=== PATIENT | female | born 1985 | race Caucasian/White ===

== ENCOUNTER 2019-09-30 15:19 | Emergency (ER) | payer MEDICAID, SELFPAY ==
[2019-09-30 15:45] VITALS: BP 127/88; PULSE 104; RESP 18; TEMP 36.8; O2SAT 98; BMI 17.2
[2019-09-30 17:16] LABS: Basophils % 0.2 %; Eosinophils % 0.2 %; Hematocrit 38.2 % (37.0-47.0); Hemoglobin 12.1 g/dL (11.5-15.3); Lymphocytes # 1.4 10^3/uL (0.8-4.8); Lymphocytes % 12.4 %; Mean Corpuscular HGB Conc 31.7 g/dL (30.0-36.0); Mean Corpuscular Hemoglobin 27.4 pg (28.0-34.0); Mean Corpuscular Volume 86.4 fL (81-99); Mean Platelet Volume 9.1 fL (7.4-10.4); Monocytes # 0.9 10^3/uL (0.2-0.9); Monocytes % 7.7 %; Neutrophils # 9.1 10^3/uL (1.8-7.7); Neutrophils % 79.2 %; Nucleated Red Blood Cells % 0 %; Platelet Count 455 10^3/cmm (130-400); Red Blood Count 4.42 10^6/uL (4.1-5.3); Red Cell Distribution Width 15.7 % (12.1-15.1); White Blood Count 11.5 10^3/uL (4.0-10.0)
[2019-09-30 17:22] LABS: Alanine Aminotransferase 20 U/L (0-33); Albumin Level 4.7 g/dL (3.5-5.2); Alkaline Phosphatase 82 IU/L (35-105); Anion Gap 18.5 (5-19); Aspartate Amino Transferase 19 U/L (0-32); Blood Urea Nitrogen 13 mg/dL (6-20); Carbon Dioxide 24 mmol/L (22-29); Chloride 95 mmol/L (98-107); Globulin 3.6 g/dL (1.3-4.6); Glomerular Filtration Rate 113.8 mL/min (90-130); Glucose 102 mg/dL (74-109); Lipase 57 U/L (13-60); Potassium 4.5 mmol/L (3.5-5.1); Sodium 133 mmol/L (136-145); Total Bilirubin 0.5 mg/dL (0.15-1.2); Total Protein 8.3 g/dL (6.6-8.7)
[2019-09-30 17:32] LABS: HCG, Serum Qual Negative (Negative)
[2019-09-30 20:39] VITALS: BP 115/84; PULSE 94; RESP 18; O2SAT 99
--- NOTE | 2019-09-30 20:53 | ED_ITS ---
HPI - Abdominal Pain General: Chief Complaint: Abdominal Pain Stated Complaint: abd pain Time Seen by Provider: 09/30/19 20:47 History of Present Illness: HPI narrative: Patient is a 33-year-old female comes to the ED with abdominal pain. She's had this abdominal pain since August 11 and has been in the ED several times in the last month. She has been referred to a GI specialist in [place] whom she actually saw today to get a biopsy performed of a mass on pancreas. Pt had biopsy done on her pancreas today in [place]. She says that she Woke up after the procedure and she was in a lot of pain. The outpatient facility [facility] with a prescription for an antibiotic but no pain meds. She comes in here today with abdominal pain for 9 out of 10. The pain is the same as her past abdominal pain. Denies any fevers, vomiting, bowel or bladder problems, shortness of breath and chest pain. She does have some mild nausea. Related Data: Date of Last Menstrual Period: 09/18/19 Review of Systems General: Reports: 10 or more systems reviewed and unremarkable except in HPI and below PFSH ED PFSH: Statuses (acute, chronic, etc) shown below reflect problem list status as previously entered and may not be historically accurate Social History Smoking and tobacco status: current every day smoker Female Reproductive History: Date of last menstrual period: 09/18/19 Physical Exam Const: COMMON NORMALS: oriented x3 HENMT: COMMON NORMALS: normocephalic HEAD & SCALP: normocephalic MOUTH: oral and palatal mucosa normal THROAT: posterior oropharynx normal and uvula midline Neck/C-Spine: COMMON NORMALS: supple GENERAL: Yes normal visual inspection Resp: COMMON NORMALS: normal respiratory effort, no retractions, no use of accessory muscles and clear to auscultation bilaterally AUSCULTATION: clear to auscultation bilaterally Cardio: COMMON NORMALS: regular rate, regular rhythm, S1 normal heart sound, S2 normal heart sound, no gallops, no clicks, no murmurs and peripheral pulses 2+ throughout RATE: regular rate RHYTHM: regular rhythm HEART SOUNDS: S1 normal and S2 normal PERIPHERAL PULSES: pulses 2+ throughout GI: COMMON NORMALS: normal to inspection, nondistended, normoactive bowel sounds, soft to palpation and no masses PALPATION: Yes soft and Yes tender (periumbilical) Details: other : COMMON NORMALS: Yes no CVA tenderness BLADDER/KIDNEY EXAM: Yes no CVA tenderness Back/Pelvis: COMMON NORMALS: no CVA tenderness Neuro: COMMON NORMALS: oriented x3 Course Vital Signs: Vital signs: Vital Signs Temperature 98.3 F 09/30/19 15:45 Pulse Rate 95 10/01/19 00:27 Respiratory Rate 20 H 10/01/19 00:27 Blood Pressure 115/86 10/01/19 00:27 Pulse Oximetry 96 10/01/19 00:27 MDM - Abdominal Pain Lab Data: Attestation: I reviewed the patient's lab results. Labs: Lab Results 09/30/19 09/30/19 09/30/19 Range/Units 16:30 16:52 16:52 WBC 11.5 H (4.0-10.0) 10^3/ uL RBC 4.42 (4.1-5.3) 10^6/u L Hgb 12.1 (11.5-15.3) g/dL Hct 38.2 (37.0-47.0) % MCV 86.4 (81-99) fL MCH 27.4 L (28.0-34.0) pg MCHC 31.7 (30.0-36.0) g/dL RDW 15.7 H (12.1-15.1) % Plt Count 455 H (130-400) 10^3/c mm MPV 9.1 (7.4-10.4) fL Neut % (Auto) 79.2 % Lymph % (Auto) 12.4 % Todd % (Auto) 7.7 % Eos % (Auto) 0.2 % Baso % (Auto) 0.2 % Neut # (Auto) 9.1 H (1.8-7.7) 10^3/u L Lymph # (Auto) 1.4 (0.8-4.8) 10^3/u L Todd # (Auto) 0.9 (0.2-0.9) 10^3/u L Eos # (Auto) 0.0 (0.0-0.8) 10^3/u L Baso # (Auto) 0.0 (0.0-0.1) 10^3/u L Nucleated RBC % (a uto) 0 % Nucleated RBCs # 0.0 /100WBC Sodium 133 L (136-145) mmol/L Potassium 4.5 (3.5-5.1) mmol/L Chloride 95 L (98-107) mmol/L Carbon Dioxide 24 (22-29) mmol/L Anion Gap 18.5 (5-19) BUN 13 (6-20) mg/dL Creatinine 0.6 (0.5-0.9) mg/dL GFR Calculation 113.8 (90-130) mL/min Glucose 102 (74-109) mg/dL Calcium 11.0 H (8.6-10.0) mg/Dl Total Bilirubin 0.5 (0.15-1.2) mg/dL AST 19 (0-32) U/L ALT 20 (0-33) U/L Alkaline Phosphata se 82 (35-105) IU/L Total Protein 8.3 (6.6-8.7) g/dL Albumin 4.7 (3.5-5.2) g/dL Globulin 3.6 (1.3-4.6) g/dL Lipase 57 (13-60) U/L HCG, Qual (Negative) Urine Color Yellow (Yellow) Urine Appearance Clear (CLEAR) Urine pH 8 H (5-7) Ur Specific Gravit y 1.010 (1.005-1.030) Urine Protein Neg (Negative) Urine Glucose (UA) Norm (Normal) Urine Ketones Negative (Negative) Urine Occult Blood Neg (Negative) Urine Nitrate Negative (Negative) Urine Bilirubin Neg (NEGATIVE) Prot Sulfosalicyli c Acd Negative Urine Urobilinogen Norm (Negative) mg/dL Ur Leukocyte Hattie ase Negative (Negative) 09/30/19 Range/Units 16:52 WBC (4.0-10.0) 10^3/ uL RBC (4.1-5.3) 10^6/u L Hgb (11.5-15.3) g/dL Hct (37.0-47.0) % MCV (81-99) fL MCH (28.0-34.0) pg MCHC (30.0-36.0) g/dL RDW (12.1-15.1) % Plt Count (130-400) 10^3/c mm MPV (7.4-10.4) fL Neut % (Auto) % Lymph % (Auto) % Todd % (Auto) % Eos % (Auto) % Baso % (Auto) % Neut # (Auto) (1.8-7.7) 10^3/u L Lymph # (Auto) (0.8-4.8) 10^3/u L Todd # (Auto) (0.2-0.9) 10^3/u L Eos # (Auto) (0.0-0.8) 10^3/u L Baso # (Auto) (0.0-0.1) 10^3/u L Nucleated RBC % (a uto) % Nucleated RBCs # /100WBC Sodium (136-145) mmol/L Potassium (3.5-5.1) mmol/L Chloride (98-107) mmol/L Carbon Dioxide (22-29) mmol/L Anion Gap (5-19) BUN (6-20) mg/dL Creatinine (0.5-0.9) mg/dL GFR Calculation (90-130) mL/min Glucose (74-109) mg/dL Calcium (8.6-10.0) mg/Dl Total Bilirubin (0.15-1.2) mg/dL AST (0-32) U/L ALT (0-33) U/L Alkaline Phosphata se (35-105) IU/L Total Protein (6.6-8.7) g/dL Albumin (3.5-5.2) g/dL Globulin (1.3-4.6) g/dL Lipase (13-60) U/L HCG, Qual Negative (Negative) Urine Color (Yellow) Urine Appearance (CLEAR) Urine pH (5-7) Ur Specific Gravit y (1.005-1.030) Urine Protein (Negative) Urine Glucose (UA) (Normal) Urine Ketones (Negative) Urine Occult Blood (Negative) Urine Nitrate (Negative) Urine Bilirubin (NEGATIVE) Prot Sulfosalicyli c Acd Urine Urobilinogen (Negative) mg/dL Ur Leukocyte Hattie ase (Negative) Discharge Plan Discharge Patient Disposition: Home, Self-Care Clinical Impression: Abdominal pain Qualifiers: Abdominal location: generalized Qualified Code(s): R10.84 - Generalized abdominal pain Condition: Stable Discharge Orders: Discharge Order (Routine); Ordered 10/01/19 Ordered By: Sanju Giron Referrals: Angelica Restrepo FNP [Primary Care Provider] - Discharge Diet: Advance as tolerated Discharge Activity: Increase activity as tolerated Patient Instructions: Abdominal Pain (ED) Activity Restrictions/Additional Instructions: Follow-up with your primary care doctor in 5-7 days for reevaluation of abdominal pain. Also follow-up with your GI specialist in [place] to go over biopsy results. Take tramadol as prescribed for pain. Discharge Date/Time: 10/01/19 00:28 Coding Level of Care Code ED [employer] Observer for Diaz Holt
[2019-09-30 22:00] VITALS: BP 137/88
[2019-09-30 22:05] VITALS: RESP 18
[2019-09-30] MEDS: ondansetron 2 mg/ML SDV 2 mL 4 MG IM (22:05)
[2019-09-30] MEDS: morphine 4 mg/mL SDV 1 mL IM (22:05)
[2019-09-30 22:14] LABS: Add Urine Microscopic? NO
[2019-09-30 23:00] VITALS: BP 116/81; PULSE 91; O2SAT 93
[2019-09-30 23:02] LABS: Bilirubin Urine Neg (NEGATIVE); Blood Urine Neg (Negative); Glucose Urine UA Norm (Normal); Ketones Urine Negative (Negative); Leukocyte Esterase Urine Negative (Negative); Nitrate Urine Negative (Negative); Protein Urine Neg (Negative); Sulfosalicylic Acid Urine Negative; Urine Appearance Clear (CLEAR); Urine Color Yellow (Yellow); Urobilinogen Urine Norm (Negative); pH Urine 8 (5-7)
[2019-10-01] VITALS: BP 124/83; PULSE 85; O2SAT 93
[2019-10-01 00:25] VITALS: RESP 20
[2019-10-01] MEDS: oxyCODONE-APAP 5-325 mg Tablet 1 TAB PO (00:25)
[2019-10-01 00:27] VITALS: BP 115/86; PULSE 95; RESP 20; O2SAT 96
== END 2019-10-01 00:28 | disposition home or self-care (01) ==
PROVIDERS: Physician Assistant; Emergency Provider Physician Assistant; Family Provider Nurse Practitioner Family; PCP Nurse Practitioner Family
DX: R10.84 Generalized abdominal pain (principal); F17.210 Nicotine dependence, cigarettes, uncomplicated
CPT/HCPCS: 80053; 81003; 83690; 84703; 85025; 96372; 99282; A9270; J2270; J2405

== ENCOUNTER 2019-11-02 21:45 | Observation (INO) | payer MEDICAID, SELFPAY ==
[2019-11-02 22:00] VITALS: BP 139/92; PULSE 107; RESP 19; TEMP 36.5; O2SAT 100; BMI 18.6
--- NOTE | 2019-11-02 23:22 | ED_ITS ---
Entered by Irene Ingram, acting as scribe for Prabhu Gee DO Nov 02, 2019 21:45 HPI - Abdominal Pain General: Chief Complaint: Abdominal Pain Stated Complaint: abd pain Time Seen by Provider: 11/02/19 23:22 Source: patient Mode of arrival: ambulatory Limitations: no limitations History of Present Illness: HPI narrative: 33 yo m came to the er pov for abd pain. Onset was tonight. Pt states that she has nausea but no vomiting. Pt states that she has had a hx of pancreatitis. MD elicited complaint: abdominal pain Pertinent past history: other (pancreatitis) Onset (ago): day(s) (today) Radiation: LUQ and RUQ Migration to: no migration Exacerbating factors: nothing Relieving factors: nothing Associated Symptoms: Reports fever(s) and nausea; Denies dysuria Related Data: Date of Last Menstrual Period: 10/10/19 Review of Systems General: Reports: other (negative unless marked ) Const: Reports: fever Eyes: Denies: change in vision or blurry vision ENMT: Denies: nasal discharge or nasal congestion Card: Denies: chest pain, palpitations or irregular heart rhythm Resp: Denies: shortness of breath, productive cough or wheezing GI: Reports: abdominal pain and nausea : Denies: difficulty urinating or painful urination Neuro: Denies: headache or confusion PFSH ED PFSH: Statuses (acute, chronic, etc) shown below reflect problem list status as previously entered and may not be historically accurate Medical History (Updated 11/03/19 @ 02:01 by Mohan Godoy MD) Acute on chronic pancreatitis (Acute) Anemia (Acute) Pancreatic pseudocyst (Acute) Surgical History (Updated 11/03/19 @ 02:03 by Mohan Godoy MD) History of (Acute) Hx of appendectomy (Acute) Family History (Updated 11/03/19 @ 02:03 by Mohan Godoy MD) Other CAD (coronary artery disease) Diabetes Hypertension Social History (Updated 11/03/19 @ 02:03 by Mohan Godoy MD) Smoking and tobacco status: current every day smoker Alcohol intake: former Substance/Drug Use: never Female Reproductive History: Date of last menstrual period: 10/10/19 Physical Exam Const: GENERAL APPEARANCE: well developed ORIENTATION/CONSCIOUSNESS: Yes oriented to person, Yes oriented to place and Yes oriented to time HENMT: COMMON NORMALS: normocephalic, external ears normal and external nose normal HEAD & SCALP: normocephalic; no scalp tenderness FACE & SINUS: normal facial exam NOSE: external nose normal and no nasal discharge EXTERNAL EAR: Yes external ears normal MOUTH: tongue normal THROAT: posterior oropharynx normal Eye: COMMON NORMALS: PERRL, EOMs intact bilaterally and conjunctivae normal EYELID: eyelids normal CONJUNCTIVA: Yes conjunctivae normal PUPIL: Yes PERRL Neck/C-Spine: COMMON NORMALS: full ROM GENERAL: No tracheal deviation Chest: COMMONS NORMALS: inspection of chest normal CHEST: No tenderness Resp: COMMON NORMALS: clear to auscultation bilaterally EFFORT & INSPECTION: No tachypneic, No respiratory distress, No retractions, No uses accessory muscles and No tracheal deviation AUSCULTATION: clear to auscultation bilaterally, no rhonchi, no wheezes and lung sounds not diminished Cardio: COMMON NORMALS: regular rate and regular rhythm RATE: regular rate RHYTHM: regular rhythm HEART SOUNDS: no murmurs PERIPHERAL PULSES: radial pulses present GI: INSPECTION: No abdominal distension AUSCULTATION: No hyperactive bowel sounds and No hypoactive bowel sounds PALPATION: Yes tender Details: LUQ, Yes guarding and No rigid PERCUSSION: no dullness to percussion and no tympanic to percussion : COMMON NORMALS: Yes no CVA tenderness BLADDER/KIDNEY EXAM: Yes no CVA tenderness Back/Pelvis: COMMON NORMALS: no CVA tenderness Neuro: SENSORIUM/ORIENTATION: Yes oriented to person, Yes oriented to place and Yes oriented to time Psych: COMMON NORMALS: mental status grossly normal Skin: COMMON NORMALS: no rashes or lesions noted GENERAL SKIN EXAM: no rashes or lesions noted Course Consultations: Consultation #1: farideh Vital Signs: Vital signs: Vital Signs Temperature 98.3 F 11/03/19 05:42 Pulse Rate 83 11/03/19 05:42 Respiratory Rate 18 11/03/19 05:42 Blood Pressure 117/73 11/03/19 05:42 Pulse Oximetry 95 11/03/19 04:06 MDM - Abdominal Pain MDM Narrative: Medical decision making narrative: 33-year-old female with a history of pancreatitis and pseudocyst presents with a one-day history of epigastric and left upper quadrant abdominal pain and nausea. Her pain is been somewhat difficult to control in the ER. She appears dry. She has a leukocytosis. Her CT scan showed peripancreatic fat stranding suggestive of acute on chronic pancreatitis. Her pseudocyst has decreased in size. She has some adjacent colonic fat stranding as well she will be admitted. Lab Data: Labs: Lab Results 11/02/19 11/02/19 11/02/19 Range/Units 23:37 23:37 23:37 WBC 11.1 H (4.0-10.0) 10^3/ uL RBC 4.00 L (4.1-5.3) 10^6/u L Hgb 10.4 L (11.5-15.3) g/dL Hct 32.1 L (37.0-47.0) % MCV 80.3 L (81-99) fL MCH 26.0 L (28.0-34.0) pg MCHC 32.4 (30.0-36.0) g/dL RDW 15.7 H (12.1-15.1) % Plt Count 381 (130-400) 10^3/c mm MPV 9.2 (7.4-10.4) fL Neut % (Auto) 78.1 % Lymph % (Auto) 14.4 % Fallon % (Auto) 6.2 % Eos % (Auto) 0.8 % Baso % (Auto) 0.3 % Neut # (Auto) 8.6 H (1.8-7.7) 10^3/u L Lymph # (Auto) 1.6 (0.8-4.8) 10^3/u L Fallon # (Auto) 0.7 (0.2-0.9) 10^3/u L Eos # (Auto) 0.1 (0.0-0.8) 10^3/u L Baso # (Auto) 0.0 (0.0-0.1) 10^3/u L Nucleated RBC % (a uto) 0 % Nucleated RBCs # 0.0 /100WBC PT (10.5-13.3) SECO NDS INR (0.8-1.2) Sodium 134 L (136-145) mmol/L Potassium 3.8 (3.5-5.1) mmol/L Chloride 98 (98-107) mmol/L Carbon Dioxide 21 L (22-29) mmol/L Anion Gap 18.8 (5-19) BUN 15 (6-20) mg/dL Creatinine 0.8 (0.5-0.9) mg/dL GFR Calculation 81.6 L (90-130) mL/min Glucose 127 H (65-115) mg/dL Calcium 10.4 (8.5-10.5) mg/dL Total Bilirubin 0.4 (0.15-1.2) mg/dL AST 18 (0-32) U/L ALT 12 (0-33) U/L Alkaline Phosphata se 69 (35-105) IU/L C-Reactive Protein 3.5 (0.0-4.9) mg/L Total Protein 7.7 (6.6-8.7) g/dL Albumin 4.3 (3.5-5.2) g/dL Globulin 3.4 (1.3-4.6) g/dL Lipase 396 H (13-60) U/L HCG, Qual Negative (Negative) Urine Color (Yellow) Urine Appearance (CLEAR) Urine pH (5-7) Ur Specific Gravit y (1.005-1.030) Urine Protein (Negative) Urine Glucose (UA) (Normal) Urine Ketones (Negative) Urine Occult Blood (Negative) Urine Nitrate (Negative) Urine Bilirubin (NEGATIVE) Urine Urobilinogen (Negative) mg/dL Ur Leukocyte Hattie ase (Negative) Urine Opiates Scre en (Negative) ng/mL Ur Barbiturates Sc reen (Negative) ng/mL Ur Phencyclidine S crn (Negative) ng/mL Ur Amphetamines Sc reen (Negative) ng/mL U Benzodiazepines Scrn (Negative) ng/mL Urine Cocaine Scre en (Negative) ng/mL U Marijuana (THC) Screen (Negative) ng/mL Ethyl Alcohol (0-10) mg/dL 11/02/19 11/02/19 11/03/19 Range/Units 23:37 23:37 00:43 WBC (4.0-10.0) 10^3/ uL RBC (4.1-5.3) 10^6/u L Hgb (11.5-15.3) g/dL Hct (37.0-47.0) % MCV (81-99) fL MCH (28.0-34.0) pg MCHC (30.0-36.0) g/dL RDW (12.1-15.1) % Plt Count (130-400) 10^3/c mm MPV (7.4-10.4) fL Neut % (Auto) % Lymph % (Auto) % Fallon % (Auto) % Eos % (Auto) % Baso % (Auto) % Neut # (Auto) (1.8-7.7) 10^3/u L Lymph # (Auto) (0.8-4.8) 10^3/u L Fallon # (Auto) (0.2-0.9) 10^3/u L Eos # (Auto) (0.0-0.8) 10^3/u L Baso # (Auto) (0.0-0.1) 10^3/u L Nucleated RBC % (a uto) % Nucleated RBCs # /100WBC PT 13.70 H (10.5-13.3) SECO NDS INR 1.02 (0.8-1.2) Sodium (136-145) mmol/L Potassium (3.5-5.1) mmol/L Chloride (98-107) mmol/L Carbon Dioxide (22-29) mmol/L Anion Gap (5-19) BUN (6-20) mg/dL Creatinine (0.5-0.9) mg/dL GFR Calculation (90-130) mL/min Glucose (65-115) mg/dL Calcium (8.5-10.5) mg/dL Total Bilirubin (0.15-1.2) mg/dL AST (0-32) U/L ALT (0-33) U/L Alkaline Phosphata se (35-105) IU/L C-Reactive Protein (0.0-4.9) mg/L Total Protein (6.6-8.7) g/dL Albumin (3.5-5.2) g/dL Globulin (1.3-4.6) g/dL Lipase (13-60) U/L HCG, Qual (Negative) Urine Color Yellow (Yellow) Urine Appearance Clear (CLEAR) Urine pH 6 (5-7) Ur Specific Gravit y 1.020 (1.005-1.030) Urine Protein Neg (Negative) Urine Glucose (UA) Norm (Normal) Urine Ketones Negative (Negative) Urine Occult Blood Neg (Negative) Urine Nitrate Negative (Negative) Urine Bilirubin Neg (NEGATIVE) Urine Urobilinogen Norm (Negative) mg/dL Ur Leukocyte Hattie ase Negative (Negative) Urine Opiates Scre en (Negative) ng/mL Ur Barbiturates Sc reen (Negative) ng/mL Ur Phencyclidine S crn (Negative) ng/mL Ur Amphetamines Sc reen (Negative) ng/mL U Benzodiazepines Scrn (Negative) ng/mL Urine Cocaine Scre en (Negative) ng/mL U Marijuana (THC) Screen (Negative) ng/mL Ethyl Alcohol < 10 (0-10) mg/dL 11/03/19 Range/Units 00:43 WBC (4.0-10.0) 10^3/ uL RBC (4.1-5.3) 10^6/u L Hgb (11.5-15.3) g/dL Hct (37.0-47.0) % MCV (81-99) fL MCH (28.0-34.0) pg MCHC (30.0-36.0) g/dL RDW (12.1-15.1) % Plt Count (130-400) 10^3/c mm MPV (7.4-10.4) fL Neut % (Auto) % Lymph % (Auto) % Fallon % (Auto) % Eos % (Auto) % Baso % (Auto) % Neut # (Auto) (1.8-7.7) 10^3/u L Lymph # (Auto) (0.8-4.8) 10^3/u L Fallon # (Auto) (0.2-0.9) 10^3/u L Eos # (Auto) (0.0-0.8) 10^3/u L Baso # (Auto) (0.0-0.1) 10^3/u L Nucleated RBC % (a uto) % Nucleated RBCs # /100WBC PT (10.5-13.3) SECO NDS INR (0.8-1.2) Sodium (136-145) mmol/L Potassium (3.5-5.1) mmol/L Chloride (98-107) mmol/L Carbon Dioxide (22-29) mmol/L Anion Gap (5-19) BUN (6-20) mg/dL Creatinine (0.5-0.9) mg/dL GFR Calculation (90-130) mL/min Glucose (65-115) mg/dL Calcium (8.5-10.5) mg/dL Total Bilirubin (0.15-1.2) mg/dL AST (0-32) U/L ALT (0-33) U/L Alkaline Phosphata se (35-105) IU/L C-Reactive Protein (0.0-4.9) mg/L Total Protein (6.6-8.7) g/dL Albumin (3.5-5.2) g/dL Globulin (1.3-4.6) g/dL Lipase (13-60) U/L HCG, Qual (Negative) Urine Color (Yellow) Urine Appearance (CLEAR) Urine pH (5-7) Ur Specific Gravit y (1.005-1.030) Urine Protein (Negative) Urine Glucose (UA) (Normal) Urine Ketones (Negative) Urine Occult Blood (Negative) Urine Nitrate (Negative) Urine Bilirubin (NEGATIVE) Urine Urobilinogen (Negative) mg/dL Ur Leukocyte Hattie ase (Negative) Urine Opiates Scre en Negative (Negative) ng/mL Ur Barbiturates Sc reen Negative (Negative) ng/mL Ur Phencyclidine S crn Negative (Negative) ng/mL Ur Amphetamines Sc reen Negative (Negative) ng/mL U Benzodiazepines Scrn Negative (Negative) ng/mL Urine Cocaine Scre en Negative (Negative) ng/mL U Marijuana (THC) Screen Negative (Negative) ng/mL Ethyl Alcohol (0-10) mg/dL Discharge Plan Discharge Admit Provider: Mohan Godoy Discharge Date/Time: 11/03/19 04:15 Coding Level of Care Code ED [employer] Worker for g Fwd The documentation recorded by the Juan Jose sullivan Stephanie Lyn, accurately reflects the service I personally performed and the decisions made by Gerard tanner Jeremy John, DO Nov 02, 2019 21:45
[2019-11-02] MEDS: sodium chloride 0.9% 1,000 ML 999 ML IV (23:43)
[2019-11-02 23:45] LABS: Basophils % 0.3 %; Eosinophils # 0.1 10^3/uL (0.0-0.8); Eosinophils % 0.8 %; Hematocrit 32.1 % (37.0-47.0); Hemoglobin 10.4 g/dL (11.5-15.3); Lymphocytes # 1.6 10^3/uL (0.8-4.8); Lymphocytes % 14.4 %; Mean Corpuscular HGB Conc 32.4 g/dL (30.0-36.0); Mean Corpuscular Volume 80.3 fL (81-99); Mean Platelet Volume 9.2 fL (7.4-10.4); Monocytes # 0.7 10^3/uL (0.2-0.9); Monocytes % 6.2 %; Neutrophils # 8.6 10^3/uL (1.8-7.7); Neutrophils % 78.1 %; Nucleated Red Blood Cells % 0 %; Platelet Count 381 10^3/cmm (130-400); Red Cell Distribution Width 15.7 % (12.1-15.1); White Blood Count 11.1 10^3/uL (4.0-10.0)
[2019-11-02] MEDS: ketorolac 30 mg/mL INJ IVP (23:55)
[2019-11-02] MEDS: ondansetron 2 mg/ML SDV 2 mL 4 MG IVP (23:56)
[2019-11-02 23:57] VITALS: RESP 18; O2SAT 99
[2019-11-02] MEDS: HYDROmorphone 1 mg/mL INJ 1 mL IVP (23:57)
--- NOTE | 2019-11-02 23:58 | CTR_ITS ---
PROCEDURE INFORMATION: Exam: CT Abdomen And Pelvis With Contrast Exam date and time: 11/02/2019 12:07 AM Age: 33 years old Clinical indication: Abdominal pain; Localized; Prior surgery; Surgery date: 6+ months; Surgery type: Appy, c-sect; Patient HX: C/O upper abd pain - HX of pancreatitis and pancreatic cyst drainage 1 month ago TECHNIQUE: Imaging protocol: Computed tomography of the abdomen and pelvis with intravenous contrast. Total DLP: 517.99 mGy-cm Radiation optimization: All CT scans at this facility use at least one of these dose optimization techniques: automated exposure control; mA and/or kV adjustment per patient size (includes targeted exams where dose is matched to clinical indication); or iterative reconstruction. Contrast material: OMNI 300; Contrast volume: 95 ml; Contrast route: 18G; COMPARISON: CT abdomen pelvis w con* [id number] 09/16/2019 8:14 PM FINDINGS: Liver: A trace amount of fluid is seen adjacent to the tip of the liver. Gallbladder and bile ducts: Normal. No calcified stones. No ductal dilation. Pancreas: There are multiple calcifications seen within the pancreas, findings suggesting chronic pancreatitis. There is a prominent cystic mass associated with the pancreatic body and tail that appears decreased in size today compared with 09/16/2019 now measuring 5.4 cm AP dimension by 7 cm transverse dimension by 5.8 cm craniocaudal dimension. The cystic mass exhibits a somewhat thickened wall measuring approximately 3 mm. Spleen: Normal. No splenomegaly. Adrenals: Normal. No mass. Kidneys and ureters: Normal. No hydronephrosis. Stomach and bowel: There are segments of the transverse colon that exhibit bowel wall thickening, findings could represent mild reactive colitis. There is some bowel wall thickening of the mid and distal stomach possibly representing reactive gastritis. Appendix: Status post appendectomy. Intraperitoneal space: There are increased strandy opacities in fluid attenuation seen within the mesentery and omentum in the left flank. Acute inflammatory changes pancreatitis cannot be excluded. Moderate fluid is seen within the dependent portion of the pelvis. This may be commensurate with the patient's age and menstrual status however. Vasculature: Unremarkable. No abdominal aortic aneurysm. Lymph nodes: Unremarkable. No enlarged lymph nodes. Bladder: Unremarkable as visualized. Reproductive: There is a 1.8 cm cystic mass seen within the left ovary exhibiting some peripheral enhancement compatible with a hemorrhagic cyst. Bones/joints: Unremarkable. No acute fracture. Soft tissues: See Pancreas Finding. CT/CT abdomen pelvis w con* [id number] IMPRESSION: 1. There are findings compatible with chronic pancreatitis. The pseudocyst is decreasing in size compared with 09/16/2019. 2. There are increased strandy and fluid opacities within the peripancreatic fat and fascia and omentum compatible with inflammatory changes and possible acute pancreatitis. 3. Probable areas of reactive colitis within the transverse colon and reactive gastritis within the mid and distal stomach. 4. A trace amount of fluid is seen adjacent to the caudal tip of the liver and moderate fluid is seen within the cul-de-sac. The latter finding may be commensurate with the patient's age and menstrual status however. There is a small 1.8 cm cystic mass within the left ovary exhibiting peripheral enhancement compatible with a hemorrhagic cyst. Radiation Dose CTDIVOL = (mGy): DLP = 517.99 (mGy-cm)
[2019-11-03] VITALS (15 sets, daily range): BP systolic 97–126; BP diastolic 57–84; PULSE 83–94; RESP 18–20; TEMP 36.7–37; O2SAT 88–99
[2019-11-03 00:12] LABS: Alanine Aminotransferase 12 U/L (0-33); Albumin Level 4.3 g/dL (3.5-5.2); Alkaline Phosphatase 69 IU/L (35-105); Anion Gap 18.8 (5-19); Aspartate Amino Transferase 18 U/L (0-32); Blood Urea Nitrogen 15 mg/dL (6-20); C Reactive Protein 3.5 mg/L (0.0-4.9); Calcium 10.4 mg/dL (8.5-10.5); Carbon Dioxide 21 mmol/L (22-29); Chloride 98 mmol/L (98-107); Creatinine Clr Calc Pharmacy 100.2308; Globulin 3.4 g/dL (1.3-4.6); Glomerular Filtration Rate 81.6 mL/min (90-130); Glucose 127 mg/dL (65-115); Potassium 3.8 mmol/L (3.5-5.1); Sodium 134 mmol/L (136-145); Total Bilirubin 0.4 mg/dL (0.15-1.2); Total Protein 7.7 g/dL (6.6-8.7)
[2019-11-03 00:16] LABS: HCG, Serum Qual Negative (Negative)
[2019-11-03 00:20] LABS: Lipase 396 U/L (13-60)
[2019-11-03] MEDS: iohexol 300 mg/mL 100 mL Btl IV (00:23)
[2019-11-03] MEDS: HYDROmorphone 1 mg/mL INJ 1 mL IVP (00:57)
[2019-11-03 01:07] LABS: Bilirubin Urine Neg (NEGATIVE); Blood Urine Neg (Negative); Glucose Urine UA Norm (Normal); Ketones Urine Negative (Negative); Leukocyte Esterase Urine Negative (Negative); Nitrate Urine Negative (Negative); Protein Urine Neg (Negative); Urine Appearance Clear (CLEAR); Urine Color Yellow (Yellow); Urobilinogen Urine Norm (Negative); pH Urine 6 (5-7)
--- NOTE | 2019-11-03 01:56 | PM.HP ---
Providers/Chief Complaint Primary Care Provider: Angelica Restrepo Chief Complaint: abd pain History of Present Illness Julianna Painting is a 33 year old female with a past medical history of alcohol abuse, pancreatitis with pseudocyst status post drainage September 2019 who presents to the emergency room due to complaints of nausea, vomiting and abdominal pain. Patient states that she was diagnosed with a pancreatic pseudocyst in July 2019, she saw a GI specialist in [place], status post drainage of the pseudocyst on September 2019, she takes multivitamins at home, takes pancreatic lipase, she has had a couple of episodes of abdominal pain and nausea and vomiting, that required one ER visit in the past month, she was told that the pseudocyst had dramatically decreased in size, and she was sent home with pain control and instructions for hydration. Patient presents today as she has recurrent abdominal pain, abdominal pain is epigastric, in the right upper left upper quadrant, does not radiate, associate with nausea, vomiting, no diarrhea, no fevers, no chills, no lightheadedness, no dizziness, is able to keep down liquids. Patient adamantly denies alcohol use, last alcohol drink was 3 months ago, denies tremors, denies anxiety, denies auditory visual or tactile hallucinations, denies lightheadedness, denies dizziness, denies chest pain, denies palpitations. Patient denies being , last menstrual period was a month ago, urine was negative Review of Systems Const: Denies: fever, chills, fatigue or malaise Eyes: Denies: change in vision or blurry vision ENMT: Denies: nasal congestion Card: Denies: chest pain or palpitations Resp: Denies: shortness of breath, productive cough, non-productive cough or wheezing GI: Reports: abdominal pain, nausea and vomiting; Denies: vomiting blood, diarrhea, constipation, bloating, cramping, blood in stool or black tarry stool : Denies: flank pain, painful urination or urinary frequency Musc: Denies: neck pain or back pain Skin/Breast: Denies: rash Neuro: Denies: headache, dizziness or vertigo Psych: Denies: anxiety or depression Endo: Denies: excessive urination or excessive thirst Medications/Allergies Allergies Allergy/AdvReac Type Severity Reaction Status Date / Time acetaminophen [From Vicodin] Allergy ADR-Itching Verified 11/02/19 22:05 hydrocodone [From Vicodin] Allergy ADR-Itching Verified 11/02/19 22:05 Additional Medication Information Additional Medication Information: Uses Creon twice daily Multivitamin, zinc, magnesium PFSH Acute PFSH: Statuses (acute, chronic, etc) shown below reflect problem list status as previously entered and may not be historically accurate Medical History (Updated 11/03/19 @ 02:01 by Mohan Godoy MD) Acute on chronic pancreatitis (Acute) Anemia (Acute) Pancreatic pseudocyst (Acute) Surgical History (Updated 11/03/19 @ 02:03 by Mohan Godoy MD) History of (Acute) Hx of appendectomy (Acute) Family History (Updated 11/03/19 @ 02:03 by Mohan Godoy MD) Other CAD (coronary artery disease) Diabetes Hypertension Social History (Updated 11/03/19 @ 02:03 by Mohan Godoy MD) Smoking and tobacco status: current every day smoker Alcohol intake: former Substance/Drug Use: never Female Reproductive History: Date of last menstrual period: 10/10/19 Vitals/I&O/Wt Last Vital Signs Temp 98.6 F 11/03/19 00:54 Pulse 84 11/03/19 00:54 Resp 18 11/03/19 00:57 BP 126/84 11/03/19 00:54 Pulse Ox 97 11/03/19 00:57 Weight last 48 hrs Weight 58.967 kg Physical Exam Const: COMMON NORMALS: no apparent distress and oriented x3 GENERAL APPEARANCE: cooperative and comfortable HENMT: COMMON NORMALS: normocephalic HEAD & SCALP: normocephalic Eye: COMMON NORMALS: PERRL, EOMs intact bilaterally and no papilledema GENERAL EYE: normal appearance of both eyes PUPIL: Yes PERRL Neck/C-Spine: COMMON NORMALS: full ROM, no lymphadenopathy, no JVD and thyroid normal THYROID: thyroid normal Lymph: LYMPHATIC: no lymphadenopathy noted Resp: COMMON NORMALS: normal respiratory effort, no retractions, no use of accessory muscles and clear to auscultation bilaterally AUSCULTATION: clear to auscultation bilaterally Cardio: COMMON NORMALS: no JVD, regular rate, regular rhythm, S1 normal heart sound, S2 normal heart sound, no gallops, no clicks and no murmurs RATE: regular rate RHYTHM: regular rhythm HEART SOUNDS: S1 normal and S2 normal GI: COMMON NORMALS: normal to inspection, nondistended, normoactive bowel sounds, soft to palpation and no hepatosplenomegaly PALPATION: Yes soft, Yes tender Details: LUQ and RUQ and Yes no hepatosplenomegaly Extremity: COMMON NORMALS: normal to inspection, full ROM and no pedal edema Neuro: COMMON NORMALS: oriented x3, CN's II-XII intact bilaterally, moves all extremities and no focal motor deficits Psych: COMMON NORMALS: mental status grossly normal, thought process normal and cooperative THOUGHT PROCESS: normal thought process Data : 11/02/19 23:37 11/02/19 23:37 A&P Assessment and plan (1) Acute on chronic pancreatitis: -Acute on chronic pancreatitis -Lipase 396 -Blood alcohol and urine toxicology screen pending Plan: -N.p.o. -IV fluids -Pain control -Creon Status: Acute Code(s): K85.90 - Acute pancreatitis without necrosis or infection, unspecified; K86.1 - Other chronic pancreatitis (2) Anemia: Monitor hemoglobin Status: Acute Code(s): D64.9 - Anemia, unspecified (3) Pancreatic pseudocyst: Status: Acute Code(s): K86.3 - Pseudocyst of pancreas Attestations Medical Necessity Statement*: Patient requires hospitalization, outpatient with observation, for acute on chronic pancreatitis Coding Level of Care Code Acute Sheet Combining Operator for [facility] Fwd Diagnoses Acute on chronic pancreatitis K85.90; K86.1 Anemia D64.9 Pancreatic pseudocyst K86.3
[2019-11-03 02:09] LABS: INR 1.02 (0.8-1.2)
--- NOTE | 2019-11-03 03:02 | PC.NURSE ---
Patient stated that feels itchy possibly from the pain medication and that on her last visit she was given Benadryl to help it. Informed the doctor.
[2019-11-03 03:11] LABS: Alcohol Level < 10 mg/dL (0-10)
[2019-11-03] MEDS: diphenhydrAMINE 50 mg/mL SDV 1mL 25 MG IVP (03:53)
[2019-11-03] MEDS: multivitamin therapeutic Tablet 1 TAB PO (04:23)
[2019-11-03] MEDS: enoxaparin 40 mg/0.4 mL Syringe SUBCUT (04:23)
[2019-11-03] MEDS: sodium chloride 0.9% 1,000 ML 100 ML IV ×2 (04:29→13:56)
[2019-11-03] MEDS: morphine 4 mg/mL SDV 1 mL 2 MG IVP ×4 (04:30→18:23)
[2019-11-03 04:46] LABS: Amphetamines Screen Urine Negative (Negative); Barbiturates Screen Urine Negative (Negative); Benzodiazepines Screen Urine Negative (Negative); Cocaine Screen Urine Negative (Negative); Opiate Screen Urine Negative (Negative); PCP Screen Urine Negative (Negative); THC Screen Urine Negative (Negative)
--- NOTE | 2019-11-03 08:45 | PM.PN ---
Subjective Subjective: Interval history: Chart reviewed, labs noted. Patient seen and examined several times throughout the day, pain is improving, she is willing to advance diet as see how she does. Would really like to go home today if possible. Did well with CLD, advanced to GI soft. Pain has remained controlled with analgesics. Medications: Reviewed: Yes Medication Review Details: Current Medications Generic Name Dose Route Start Last Admin Trade Name Freq PRN Reason Stop Dose Admin Enoxaparin Sodium 40 mg 11/03/19 04:06 11/03/19 04:23 Lovenox SUBCUT 40 mg Q24H KACY Administration Sodium Chloride 1,000 mls @ 100 m ls/hr 11/03/19 04:06 11/03/19 04:29 Sodium Chloride 0.9% IV 100 mls/hr .Q10H KACY Administration Morphine Sulfate 2 mg 11/03/19 04:06 11/03/19 04:30 Morphine IVP 2 mg Q4H PRN Administration SEVERE PAIN Vitals/I&O/Wt Last Vital Signs Temp 98.1 F 11/03/19 07:42 Pulse 88 11/03/19 07:42 Resp 18 11/03/19 07:42 BP 97/57 11/03/19 07:42 Pulse Ox 88 L 11/03/19 07:42 11/02/19 11/03/19 11/03/19 22:59 06:59 14:59 Intake Total 0 / 0 Output Total 0 / 0 Balance 0 / 0 Weight last 48 hrs Weight 58.967 kg Physical Exam Const: COMMON NORMALS: no apparent distress and oriented x3 GENERAL APPEARANCE: cooperative and comfortable NUTRITIONAL APPEARANCE: thin ORIENTATION/CONSCIOUSNESS: Yes awake HENMT: COMMON NORMALS: normocephalic, head/scalp atraumatic, hearing grossly normal bilaterally and moist oral mucous membranes HEAD & SCALP: normocephalic and atraumatic Eye: COMMON NORMALS: PERRL, EOMs intact bilaterally and conjunctivae normal CONJUNCTIVA: Yes conjunctivae normal PUPIL: Yes PERRL Neck/C-Spine: COMMON NORMALS: full ROM GENERAL: Yes normal visual inspection and Yes trachea midline Resp: COMMON NORMALS: normal respiratory effort, no retractions, no use of accessory muscles and clear to auscultation bilaterally EFFORT & INSPECTION: Yes able to speak in complete sentences, Yes symmetric chest movement and No tachypneic AUSCULTATION: clear to auscultation bilaterally Cardio: COMMON NORMALS: regular rate, regular rhythm, S1 normal heart sound, S2 normal heart sound and no murmurs RATE: regular rate RHYTHM: regular rhythm HEART SOUNDS: S1 normal and S2 normal GI: COMMON NORMALS: normal to inspection, nondistended, normoactive bowel sounds and soft to palpation PALPATION: Yes soft, Yes tender Details: RUQ (and periumbilical ), No guarding, No rigid and No rebound tenderness present Extremity: COMMON NORMALS: normal to inspection, full ROM and no clubbing, cyanosis or edema; negative for no pedal edema Neuro: COMMON NORMALS: oriented x3, moves all extremities, no focal motor deficits, no sensory deficits noted and gait normal Psych: COMMON NORMALS: mental status grossly normal, thought process normal, cooperative, affect normal and speech normal SPEECH: Yes normal speech THOUGHT PROCESS: normal thought process Skin: COMMON NORMALS: no rashes or lesions noted, no jaundice, no petechiae and no mottling GENERAL SKIN EXAM: no rashes or lesions noted Data : 11/02/19 23:37 11/02/19 23:37 A&P Assessment and plan (1) Pancreatic pseudocyst: -has known hx of pancreatic pseudocyst that was drained in 09/2019 and per imaging has decreased in size -has been seen by GI specialist in [place] -lipase-396 -unable to exclude superimposed acute pancreatitis per imaging report -pain control, antiemetics as needed -NPO; start on CLD, advance as tolerated -IVF hydration -VSS; continue to monitor Status: Acute Code(s): K86.3 - Pseudocyst of pancreas (2) Acute on chronic pancreatitis: -has hx of alcohol induced chronic pancretatitis -as noted above -continue pancreatic enzymes Status: Acute Code(s): K85.90 - Acute pancreatitis without necrosis or infection, unspecified; K86.1 - Other chronic pancreatitis (3) Anemia: -has chronic normocytic anemia; baseline Hg 9-10 -continue to monitor H/H Status: Acute Qualifiers: Anemia type: unspecified type Qualified Code(s): D64.9 - Anemia, unspecified Code(s): D64.9 - Anemia, unspecified Additional A&P Information -Chronic smoker -noted reactive colitis and gastritis on imaging; PPI -GI ppx with PPI -DVT ppx with Lovenox -Dispo: home -Code status: FULL code Attestations Medical Necessity Statement*: Discharge home late this afternoon if tolerating oral intake and pain controlled. Time Spent in Patient Care: Greater than 35 minutes (>than 50% of time spent in counselling and/or direct pt care on unit). Coding Level of Care Code Acute Mammography Technician for [facility] Exam Problem Focused Diagnoses Pancreatic pseudocyst K86.3 Acute on chronic pancreatitis K85.90; K86.1 Anemia D64.9 Anemia type: unspecified type
[2019-11-03] MEDS: lipase-protease-amylase Capsule 1 EACH PO ×2 (08:48→17:26)
--- NOTE | 2019-11-03 14:52 | PC.CHAP ---
Pastoral Care Encounter/Spiritual Assessment Type of Contact [] Declined learning operations specialist visit [] Patient/Family/Request visit [] Outpatient visit [] Follow-up visit [] Physician referral [] Code/Alert [x] Routine visit [] Staff referral [] Actively dying [] Patient sleeping [] Family support [] [] Out of room [] Palliative care [] [] Receiving care in room [] Pre-surgical visit [] Trauma [] Long length of stay [] ICU visit [] Other: Relational/Emotional Strength [x] Patient feels connected with others/family/visitors/staff [x] Distress [] Loneliness/isolation [] Abandonment Spirituality of Patient [x] Person of Felicity [x] Attends Judaism of their Felicity [x] Believes in Prayer [] Reads Bible or Restorationism materials [] There are 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 Interventions [x] Prayer [x] Active listening [x] Non-anxious presence [] Spiritual/emotional support [] Crisis/trauma care [] Spiritual counseling [] Bereavement support [] Provided bereavement packet [] Provided Bible/devotional materials [] Provided toy/stuffed animal, coloring book to patient or family member [] Provided Communion [] Anointing/Louise [] Salvation [x] Completed spiritual assessment [] Other: Impact on Illness or Injury [] Angry [] Fearful [] Anxious [] Often cries [] Exhaustion [] Unable to work [] Unable to attend islam [] Unable to walk/stand [] Unable to read [] Unable to drive [] Unable to eat/drink [] Unable to sleep [] Unable to be with family [] Patient intubated [] Other: Summary patient in lots lp\oys pain Time spent with patient 10 min
--- NOTE | 2019-11-03 18:29 | P.DS_ITS ---
Discharge Providers Date of Admission: 11/03/19 01:29 Date of Discharge: November 03, 2019 Attending Provider at Admission: Mohan Godoy MD Attending Provider at Discharge: Dayan Reilly MD Primary Care Provider: Angelica Restrepo Diagnoses at Discharge Discharge Diagnosis (1) Pancreatic pseudocyst: Status: Acute Problem details: -has known hx of pancreatic pseudocyst that was drained in 09/2019 and per imaging has decreased in size -has been seen by GI specialist in [place] -lipase-396 -unable to exclude superimposed acute pancreatitis per imaging report -pain control, antiemetics as needed -tolerating GI soft diet -IVF hydration -VSS; continue to monitor (2) Acute on chronic pancreatitis: Status: Acute Problem details: -has hx of alcohol induced chronic pancretatitis -as noted above -continue pancreatic enzymes (3) Anemia: Status: Acute Problem details: -has chronic normocytic anemia; baseline Hg 9-10 -continue to monitor H/H Qualifiers: Anemia type: unspecified type Qualified Code(s): D64.9 - Anemia, unspecified Reason for Visit Reason for Visit: Reason For Visit: ACUTE PANCREATITIS Hospital Course Hospital Course: PPI patient was admitted to the medical surgical floor and placed on bowel rest, IV fluid hydration, pain control. Fortunately her symptoms improved fairly quickly and we were able to advance her diet which she has tolerated without difficulty. She has requested to be discharged home today so she may return to work. Given that her symptoms have improved significantly and she is able to tolerate oral intake without difficulty she will be discharged home this evening. She has a known pancreatic pseudocyst that seems to be gradually decreasing in size. She did have some evidence of mild reactive colitis and gastritis and has been discharged on. Vital signs have been stable, she has been afebrile. Discharge Summary: -Patient to follow-up with her primary care provider within 1 week -Patient to seek medical attention immediately should her symptoms worsen or return Physical Exam Const: COMMON NORMALS: no apparent distress and oriented x3 GENERAL APPEARANCE: cooperative and comfortable NUTRITIONAL APPEARANCE: thin ORIENTATION/CONSCIOUSNESS: Yes awake HENMT: COMMON NORMALS: normocephalic, head/scalp atraumatic, hearing grossly normal bilaterally and moist oral mucous membranes HEAD & SCALP: normocephalic and atraumatic Eye: COMMON NORMALS: PERRL, EOMs intact bilaterally and conjunctivae normal CONJUNCTIVA: Yes conjunctivae normal PUPIL: Yes PERRL Neck/C-Spine: COMMON NORMALS: full ROM GENERAL: Yes normal visual inspection and Yes trachea midline Resp: COMMON NORMALS: normal respiratory effort, no retractions, no use of accessory muscles and clear to auscultation bilaterally EFFORT & INSPECTION: Yes able to speak in complete sentences, Yes symmetric chest movement and No tachypneic AUSCULTATION: clear to auscultation bilaterally Cardio: COMMON NORMALS: regular rate, regular rhythm, S1 normal heart sound, S2 normal heart sound and no murmurs RATE: regular rate RHYTHM: regular rhythm HEART SOUNDS: S1 normal and S2 normal GI: COMMON NORMALS: normal to inspection, nondistended, normoactive bowel sounds and soft to palpation PALPATION: Yes soft, Yes tender, No guarding, No rigid and No rebound tenderness present Extremity: COMMON NORMALS: normal to inspection, full ROM and no clubbing, cyanosis or edema; negative for no pedal edema Neuro: COMMON NORMALS: oriented x3, moves all extremities, no focal motor deficits, no sensory deficits noted and gait normal Psych: COMMON NORMALS: mental status grossly normal, thought process normal, cooperative, affect normal and speech normal SPEECH: Yes normal speech THOUGHT PROCESS: normal thought process Skin: COMMON NORMALS: no rashes or lesions noted, no jaundice, no petechiae and no mottling GENERAL SKIN EXAM: no rashes or lesions noted Discharge Data Data Completed and Pending: Completed Studies During Hospitalization Category Date Time Status CT abdomen pelvis w con* [id number] Urge nt Cat Scan 11/02/19 23:58 Completed Pending at discharge Category Date Time Status CBC [Complete Blo od Count w/Auto] A LABS Lab 11/04/19 04:00 Ordered CBC [Complete Blo od Count w/Auto] A M LABS Lab 11/05/19 04:00 Ordered CBC [Complete Blo od Count w/Auto] A M LABS Lab 11/06/19 04:00 Ordered Comprehensive Met abolic Panel AM LA BS Lab 11/04/19 04:00 Ordered Comprehensive Met abolic Panel AM LA BS Lab 11/05/19 04:00 Ordered Comprehensive Met abolic Panel AM LA BS Lab 11/06/19 04:00 Ordered Magnesium AM LABS Lab 11/04/19 04:00 Ordered Magnesium AM LABS Lab 11/05/19 04:00 Ordered Magnesium AM LABS Lab 11/06/19 04:00 Ordered Phosphorus AM LAB S Lab 11/04/19 04:00 Ordered Phosphorus AM LAB S Lab 11/05/19 04:00 Ordered Phosphorus AM LAB S Lab 11/06/19 04:00 Ordered Labs from last 24 hours 11/03/19 11/03/19 11/02/19 00:43 00:43 23:37 WBC RBC Hgb Hct MCV MCH MCHC RDW Plt Count MPV Neut % (Auto) Lymph % (Auto) Powell % (Auto) Eos % (Auto) Baso % (Auto) Neut # (Auto) Lymph # (Auto) Powell # (Auto) Eos # (Auto) Baso # (Auto) Nucleated RBC % (a uto) Nucleated RBCs # PT INR Sodium Potassium Chloride Carbon Dioxide Anion Gap BUN Creatinine GFR Calculation Glucose Calcium Total Bilirubin AST ALT Alkaline Phosphata se C-Reactive Protein Total Protein Albumin Globulin Lipase HCG, Qual Urine Color Yellow Urine Appearance Clear Urine pH 6 Ur Specific Gravit y 1.020 Urine Protein Neg Urine Glucose (UA) Norm Urine Ketones Negative Urine Occult Blood Neg Urine Nitrate Negative Urine Bilirubin Neg Urine Urobilinogen Norm Ur Leukocyte Hattie ase Negative Urine Opiates Scre en Negative Ur Barbiturates Sc reen Negative Ur Phencyclidine S crn Negative Ur Amphetamines Sc reen Negative U Benzodiazepines Scrn Negative Urine Cocaine Scre en Negative U Marijuana (THC) Screen Negative Ethyl Alcohol < 10 11/02/19 11/02/19 11/02/19 23:37 23:37 23:37 WBC RBC Hgb Hct MCV MCH MCHC RDW Plt Count MPV Neut % (Auto) Lymph % (Auto) Powell % (Auto) Eos % (Auto) Baso % (Auto) Neut # (Auto) Lymph # (Auto) Powell # (Auto) Eos # (Auto) Baso # (Auto) Nucleated RBC % (a uto) Nucleated RBCs # PT 13.70 H INR 1.02 Sodium 134 L Potassium 3.8 Chloride 98 Carbon Dioxide 21 L Anion Gap 18.8 BUN 15 Creatinine 0.8 GFR Calculation 81.6 L Glucose 127 H Calcium 10.4 Total Bilirubin 0.4 AST 18 ALT 12 Alkaline Phosphata se 69 C-Reactive Protein 3.5 Total Protein 7.7 Albumin 4.3 Globulin 3.4 Lipase 396 H HCG, Qual Negative Urine Color Urine Appearance Urine pH Ur Specific Gravit y Urine Protein Urine Glucose (UA) Urine Ketones Urine Occult Blood Urine Nitrate Urine Bilirubin Urine Urobilinogen Ur Leukocyte Hattie ase Urine Opiates Scre en Ur Barbiturates Sc reen Ur Phencyclidine S crn Ur Amphetamines Sc reen U Benzodiazepines Scrn Urine Cocaine Scre en U Marijuana (THC) Screen Ethyl Alcohol 11/02/19 23:37 WBC 11.1 H RBC 4.00 L Hgb 10.4 L Hct 32.1 L MCV 80.3 L MCH 26.0 L MCHC 32.4 RDW 15.7 H Plt Count 381 MPV 9.2 Neut % (Auto) 78.1 Lymph % (Auto) 14.4 Powell % (Auto) 6.2 Eos % (Auto) 0.8 Baso % (Auto) 0.3 Neut # (Auto) 8.6 H Lymph # (Auto) 1.6 Powell # (Auto) 0.7 Eos # (Auto) 0.1 Baso # (Auto) 0.0 Nucleated RBC % (a uto) 0 Nucleated RBCs # 0.0 PT INR Sodium Potassium Chloride Carbon Dioxide Anion Gap BUN Creatinine GFR Calculation Glucose Calcium Total Bilirubin AST ALT Alkaline Phosphata se C-Reactive Protein Total Protein Albumin Globulin Lipase HCG, Qual Urine Color Urine Appearance Urine pH Ur Specific Gravit y Urine Protein Urine Glucose (UA) Urine Ketones Urine Occult Blood Urine Nitrate Urine Bilirubin Urine Urobilinogen Ur Leukocyte Hattie ase Urine Opiates Scre en Ur Barbiturates Sc reen Ur Phencyclidine S crn Ur Amphetamines Sc reen U Benzodiazepines Scrn Urine Cocaine Scre en U Marijuana (THC) Screen Ethyl Alcohol Vitals: Last Vital Signs Temp 98.0 F 11/03/19 15:59 Pulse 94 11/03/19 15:59 Resp 18 11/03/19 18:23 BP 102/64 11/03/19 15:59 Pulse Ox 99 11/03/19 15:59 Discharge Plan Discharge Patient Disposition: Home, Self-Care Condition: Stable Prescriptions: New Percocet 5-325 mg tablet 1 tab PO Q6H PRN (Reason: pain, moderate) Qty: 30 RF: 0 Zenpep 5,000-17,000- 24,000 unit Capsule,Delayed Release(Dr/Ec) 1 ea PO BID 30 Days Qty: 60 RF: 0 ondansetron HCl [Zofran] 4 mg tablet 4 mg PO Q6H PRN (Reason: nausea and vomiting) 3 Days Qty: 12 RF: 0 pantoprazole 40 mg tablet,delayed release (DR/EC) 40 mg PO DAILY 30 Days Qty: 30 RF: 0 Discharge Orders: Discharge Order (Routine); Ordered 11/03/19 Ordered By: Dayan Reilly Referrals: Angelica Restrepo FNP [Primary Care Provider] - 4-7 days (please call Monday to set up a Post-hospital follow up) Discharge Diet: Low Fat and GI Soft Discharge Activity: Resume usual activity Stand Alone Forms: Work/School Release Discharge Attestations Time Spent in Discharge Care*: greater than 30 min Specific Discharge Activities: Specific discharge activities: educating patient, documenting/other paperwork and evaluating patient/reviewing data Status at Discharge: Cognitive status at discharge: cognitively intact , Behavioral status at discharge: cooperative , Functional status at discharge: independent ambulation Overall status at discharge: patient is back to baseline Quality Metrics Clinical Quality Measures During this hospital stay, did patient experience: None Coding Level of Care Code Acute Dye Can Operator for [facility] Diagnoses Pancreatic pseudocyst K86.3 Acute on chronic pancreatitis K85.90; K86.1 Anemia D64.9 Anemia type: unspecified type
== END 2019-11-03 20:16 | disposition home or self-care (01) ==
LOC: ER 11-03 02:11 → MEDSURG 11-03 06:46
PROVIDERS: Admitting Provider Family Medicine; Emergency Provider Emergency Medicine; Family Provider Nurse Practitioner Family; PCP Nurse Practitioner Family; Visit Provider Family Medicine
DX: K86.3 Pseudocyst of pancreas (principal); K85.90 Acute pancreatitis without necrosis or infection, unspecified; K86.1 Other chronic pancreatitis; D64.9 Anemia, unspecified; Z82.49 Family history of ischemic heart disease and other diseases of the circulatory system; Z83.3 Family history of diabetes mellitus; F17.210 Nicotine dependence, cigarettes, uncomplicated
CPT/HCPCS: 12345; 36415; 74177; 80053; 80307; 83690; 84703; 85025; 85610; 86140; 96360; 96361; 96372; 96374; 96375; 99283; 99285; G0378; J1170; J1200; J1650; J1885; J2270; J2405; J7030; Q9967